=== PATIENT | male | born 1955 | race Caucasian/White ===

== ENCOUNTER 2019-08-18 13:28 | Emergency (ER) | payer OTHER ==
[2019-08-18 14:50] VITALS: BP 138/77
--- NOTE | 2019-08-18 14:55 | UC ---
Laceration HPI - HPI Summary HPI Summary: 63-year-old male presents with laceration to the palm of his left hand. States at approximately 12:00 PM he was opening a package with a sharp knife, slipped and stabbed his hand over the thenar eminence. He has full ROM to the left thumb. Bleeding controlled with direct pressure prior to arrival. Last tetanus 2013. Denies numbness and tingling. - History Of Current Complaint Chief Complaint: UCLaceration Stated Complaint: LEFT THUMB LAC Time Seen by Provider: 08/18/19 14:50 Hx Obtained From: Patient Pain Intensity: 1 - Allergies/Home Medications Allergies/Adverse Reactions: Allergies Allergy/AdvReac Type Severity Reaction Status Date / Time cefixime [From Suprax] Allergy Diarrhea Verified 08/18/19 14:40 Home Medications: Home Medications Aspirin [Aspirin Adult Low Strengt] 81 mg PO DAILY 11/08/16 [History Confirmed 08/18/19] Atorvastatin* [Lipitor 40 MG*] 40 mg PO DAILY 11/08/16 [History Confirmed ] Fluticasone NASAL SPRAY 50MCG* [Flonase NASAL SPRAY 50MCG*] 2 spray BOTH NARES DAILY 11/08/16 [History Confirmed 08/18/19] Omeprazole [Prilosec] 20 mg PO DAILY 11/08/16 [History Confirmed 08/18/19] Sildenafil (NF) [Viagra (NF)] 50 mg PO DAILY 11/08/16 [History Confirmed ] Amoxicillin/Clavulanate TAB* [Augmentin TAB 875*] 875 mg PO BID #10 tab [Rx] Multivitamin [Multiple Vitamins] 1 each PO QAM 08/18/19 [History Confirmed 08/17] PMH/Surg Hx/FS Hx/Imm Hx Endocrine History: Dyslipidemia GI/ History: Gastroesophageal Reflux - Surgical History Surgical History: Yes Surgery Procedure, Year, and Place: appy; right finger amputations x3 - Social History Alcohol Use: Daily Alcohol Amount: 2-4 Substance Use Type: None Smoking Status (MU): Former Smoker Review of Systems All Other Systems Reviewed And Are Negative: Yes Constitutional: Positive: Negative Skin: Positive: Other - See HPI Respiratory: Positive: Negative Cardiovascular: Positive: Negative Gastrointestinal: Positive: Negative Genitourinary: Positive: Negative Neurovascular: Negative: Decreased Sensation Musculoskeletal: Negative: Arthralgia, Decreased ROM Neurological/Mental Status: Positive: Negative Is Patient Immunocompromised?: No Physical Exam - Summary Physical Exam Summary: GENERAL APPEARANCE: Well developed, well nourished, alert and cooperative, and appears to be in no acute distress. CARDIAC: Normal S1 and S2. No S3, S4 or murmurs. Rhythm is regular. There is no peripheral edema, cyanosis or pallor. Extremities are warm and well perfused. Capillary refill is less than 2 seconds. Peripheral pulses intact. LUNGS: Clear to auscultation without rales, rhonchi, wheezing or diminished breath sounds. ABDOMEN: Positive bowel sounds. Soft, nondistended, nontender. No guarding or rebound. No masses or hepatosplenomegally. MUSKULOSKELETAL: ROM intact to all extremities. No joint erythema or tenderness. Normal muscular development. Normal gait. EXTREMITIES: Linear laceration with gaping wound margins to the left palmar hand over the thenar eminence. Bleeding controlled. SKIN: Skin normal color, texture and turgor. Triage Information Reviewed: Yes Vital Signs: Initial Vital Signs Temp 98.4 F 08/18/19 14:36 Pulse 94 08/18/19 14:36 Resp 18 08/18/19 14:36 BP 138/77 08/18/19 14:36 Pulse Ox 96 08/18/19 14:36 Vital Signs Reviewed: Yes Images Hands: 1 - Linear laceration with bleeding controlled. Procedures - Procedure Summary Procedure Summary: Procedure note: Laceration repair left hand Informed consent was obtained before procedure started and the appropriate timeout was taken. The wound was copiously irrigated by the RN prior to wound repair. The area was prepped with Betadine. Local anesthesia was achieved using 2.5 ml of lidocaine 1% without epinephrine. The wound was explored and no foreign body or tendon laceration noted. The wound margins were brought into good alignment and 5 interrupted sutures were placed using 4-0 Ethilon. Total length of wound after repair was 2 cm. Estimated blood loss was minimal. A dressing was applied to the area. Anticipatory guidance, as well as standard post-procedure care was discussed with patient. Return precautions are given. The patient tolerated the procedure well without complications. Patient is to follow up in 10-14 days for suture removal and evaluation of the laceration. Laceration Course/Dx - Course/Dx Course Of Treatment: 63-year-old male presents with laceration to the palm of his left hand. States at approximately 12:00 PM he was opening a package with a sharp knife, slipped and stabbed his hand over the thenar eminence. He has full ROM to the left thumb. Bleeding controlled with direct pressure prior to arrival. Last tetanus 2013. Denies numbness and tingling. Afebrile. Vital signs stable. Patient had a linear laceration with gaping wound margins to the left palmar hand over the thenar eminence. Bleeding controlled. The wound was copiously irrigated by the RN prior to wound closure. Laceration was repaired using a total of 5 interrupted sutures using 4-0 Ethilon. Total length of the wound after closure was 2 cm. The patient's tetanus was updated and the RN dressed wound. Patient is to return here or with his PCP in 10-14 days for suture removal. I'm going to place him on Augmentin 8 and 75 mg twice a day 5 days for infection prophylaxis due to the depth and location of the wound. Anticipatory guidance, wound care, and warning symptoms were reviewed with the patient. Verbalizes understanding and agrees with plan of care. - Differential Dx - Laceration/Wound Differental Diagnoses: Avulsion, Laceration, Tendon Laceration - Diagnosis Provider Diagnosis: Laceration of left hand Discharge ED - Sign-Out/Discharge Documenting (check all that apply): Patient Departure All imaging exams completed and their final reports reviewed: No Studies - Discharge Plan Condition: Stable Disposition: HOME Prescriptions: Amoxicillin/Clavulanate TAB* [Augmentin TAB 875*] 875 mg PO BID #10 tab Patient Education Materials: Care For Your Stitches (ED), Laceration (ED) Referrals: Fiona Jeffery NP [Primary Care Provider] - Additional Instructions: Start Augmentin 875 mg twice a day for 5 days to help prevent infection. Your tetanus was updated today. Be sure to notify your primary care provider so that they can update their records. Leave the dressing that was applied in the clinic in place until tomorrow. Be sure to keep it clean and dry. Starting tomorrow you may remove the dressing and shower and wash hands as normal. Do not submerge the hand under water to prevent infection. Clean the wound with a mild soap and water at least once a day. Apply some antibiotic ointment and cover with a bandage. This should be changed at least once a day or any time the dressing becomes wet or soiled. Use acetaminophen (Tylenol) or ibuprofen (Advil, Motrin) according to directions as needed for pain. Sutures will need to be removed in 10-14 days. You may return here or with your primary care provider to have this done. Watch for signs of infection including fever greater than 100.5 F, severe pain not managed with pain medication, redness that spreads, swelling of the hand/ fingers, or pus draining from the wound. Seek immediate medical attention should any of these occur. - Billing Disposition and Condition Condition: STABLE Disposition: Home
[2019-08-18] MEDS ORDERED: Tetan/Diph/Pertus SYR(Tdap)* 0.5 ML SYR(BOOSTRIX) use SYR contains LATEX IM ONE (15:15)
[2019-08-18] MEDS ORDERED: Lidocaine 1% MPF ** 5 ML VIAL INJ ONE (15:16)
== END 2019-08-18 16:03 | disposition home or self-care (01) ==
LOC: UCCORT 13:28
DX: S61.412A Laceration without foreign body of left hand, initial encounter (principal); E78.5 Hyperlipidemia, unspecified; K21.9 Gastro-esophageal reflux disease without esophagitis; Z88.1 Allergy status to other antibiotic agents; Z79.82 Long term (current) use of aspirin; Z79.899 Other long term (current) drug therapy; Z87.891 Personal history of nicotine dependence; Z23 Encounter for immunization; W26.0XXA Contact with knife, initial encounter; Y93.89 Activity, other specified; Y92.9 Unspecified place or not applicable
CPT/HCPCS: 12001; 90471; 90715; 99212; G0463